=== PATIENT | female | born 1980 | race Caucasian/White ===

== ENCOUNTER 2016-07-09 22:45 | Emergency (ER) | payer SELFPAY | END 2016-07-09 23:44 | disposition left against medical advice (07) | LOC: ED 22:45 | DX: R21 Rash and other nonspecific skin eruption (principal); Z53.21 Procedure and treatment not carried out due to patient leaving prior to being seen by health care provider ==

== ENCOUNTER 2016-07-24 13:42 | Emergency (ER) | payer SELFPAY ==
[2016-07-24 14:08] VITALS: BP 142/98
--- NOTE | 2016-07-24 15:16 | UC ---
UC General HPI - HPI Summary HPI Summary: complaint of rash on her legs ,abdomen that started approx 3 months ago last week she started to get a rash on her legs itchy sometimes rash starts as red area then scabs over scabs seem not to healing some areas are surrounded by red welts denies fever hasn't used any medication for rash - History of Current Complaint Chief Complaint: UCRash Stated Complaint: SKIN COMPLAINT Time Seen by Provider: 07/24/16 15:08 Hx Obtained From: Patient - Allergy/Home Medications Allergies/Adverse Reactions: Allergies Allergy/AdvReac Type Severity Reaction Status Date / Time No Known Allergies Allergy Verified 06/05/15 12:47 PMH/Surg Hx/FS Hx/Imm Hx Previously Healthy: Yes Cardiovascular History Of: Denies: Pacemaker/ICD - Surgical History Surgical History: Yes Surgery Procedure, Year, and Place: 2000 ECTOPIC ; FALLOPIAN TUBE REMOVED - Family History Known Family History: Negative: Cardiac Disease, Hypertension, Diabetes - Social History Occupation: Employed Full-time Lives: With Family Alcohol Use: Occasionally Substance Use Type: None Smoking Status (MU): Light Every Day Tobacco Smoker Review of Systems Constitutional: Negative Skin: Rash Eyes: Negative ENT: Negative Respiratory: Negative Cardiovascular: Negative Gastrointestinal: Negative Genitourinary: Negative Motor: Negative Neurovascular: Negative Musculoskeletal: Negative Neurological: Negative Psychological: Negative All Other Systems Reviewed And Are Negative: Yes Physical Exam Triage Information Reviewed: Yes Appearance: No Pain Distress, Well-Nourished Vital Signs: Initial Vital Signs Temp 97.8 F 07/24/16 14:04 Pulse 91 07/24/16 14:04 Resp 16 07/24/16 14:04 BP 142/98 07/24/16 14:04 Pulse Ox 100 07/24/16 14:04 Vital Signs Reviewed: Yes Eyes: Positive: Conjunctiva Clear ENT: Positive: Pharynx normal, TMs normal Neck: Positive: No Lymphadenopathy Respiratory: Positive: Lungs clear, Normal breath sounds, No respiratory distress Cardiovascular: Positive: RRR, No Murmur, Pulses Normal Abdomen Description: Positive: Nontender, Soft Bowel Sounds: Positive: Present Musculoskeletal: Positive: No Edema Neurological: Positive: Alert Psychological Exam: Normal Skin: Positive: Other - legs,abdomen, arms- scattered erythematous papules with erythema surrounding them in various stages of healing Course/Dx - Course Course Of Treatment: exam completed. rash appears to be from bed bugs- some areas are infected, will treat with oral antibioitc d/t number of bites and give topical to prevent infection - Differential Dx - Multi-Symptom Provider Diagnoses: bed bug bites. celulitis Discharge - Discharge Plan Condition: Stable Disposition: HOME Prescriptions: Mupirocin 2% OINT* [Bactroban 2 % Oint*] 1 applic TOPICAL BID #1 tube Sulfamethox/Trimethoprim DS* [Bactrim DS 800/160 TAB*] 1 tab PO BID #14 tab Patient Education Materials: Bed Bugs (ED), Cellulitis (ED) Referrals: No Primary Care Phys,NOPCP [Primary Care Provider] - [facility] [place] [facility] [Outside] Additional Instructions: Start antibiotic and ointment as directed Increase fluids and rest Take benadryl to reduce itching Please review your discharge instructions. If your symptoms do not improve please call your primary care provider or return to urgent care
== END 2016-07-24 15:36 | disposition home or self-care (01) ==
LOC: UCEAST 13:42
DX: S80.862A Insect bite (nonvenomous), left lower leg, initial encounter (principal); S80.861A Insect bite (nonvenomous), right lower leg, initial encounter; S30.861A Insect bite (nonvenomous) of abdominal wall, initial encounter; S40.862A Insect bite (nonvenomous) of left upper arm, initial encounter; S40.861A Insect bite (nonvenomous) of right upper arm, initial encounter; L03.90 Cellulitis, unspecified; W57.XXXA Bitten or stung by nonvenomous insect and other nonvenomous arthropods, initial encounter; Y93.9 Activity, unspecified; Y92.9 Unspecified place or not applicable; F17.210 Nicotine dependence, cigarettes, uncomplicated
CPT/HCPCS: 99212; G0463

== ENCOUNTER 2016-09-06 03:28 | Emergency (ER) | payer OTHER ==
[2016-09-06 03:48] VITALS: BP 127/86
[2016-09-06 04:20] LABS: Manual Entry Verification ROB0080; UR Preg Internal Control QC Line Present
--- NOTE | 2016-09-06 08:23 | RAD ---
INDICATION: Left-sided chest pain COMPARISON: None TECHNIQUE: PA and lateral views of the chest were obtained. FINDINGS: The heart and mediastinum are normal in size and contour. The lungs are grossly clear. There is no evidence of large pleural effusion. Visualized bones are normal for the patient's age. There is no radiographic evidence of free air beneath the diaphragm IMPRESSION: No radiographic evidence of acute cardiopulmonary disease.
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
== END 2016-09-06 07:21 | disposition home or self-care (01) ==
LOC: ED 03:28
DX: S13.9XXA Sprain of joints and ligaments of unspecified parts of neck, initial encounter (principal); X58.XXXA Exposure to other specified factors, initial encounter; Y93.9 Activity, unspecified; Y92.9 Unspecified place or not applicable; Y99.9 Unspecified external cause status
CPT/HCPCS: 70450; 71020; 72125; 81025; 99282